=== PATIENT | male | born 1945 | race Caucasian/White ===

== ENCOUNTER 2017-02-27 12:57 | Emergency (ER) | payer OTHER, MEDICARE ==
[~2017-02-27] VITALS: Ht 182.9 cm; Wt 78.3 kg
[2017-02-27 13:02] VITALS: TEMP 36.3; Ht 182.9 cm; Wt 78.3 kg
[2017-02-27] MEDS ORDERED: METOPROLOL TARTRATE 1 MG/ML VIAL IV STA (13:45)
[2017-02-27] MEDS ORDERED: METOPROLOL SUCC 50MG EXT REL TAB PO STA (13:45)
[2017-02-27 13:52] LABS: BASO % 0.9 %; BASO ABS # 0.07 K/uL (0-0.2); EOS % 2.3 %; EOS ABS # 0.18 K/uL (0-0.5); HEMATOCRIT 47.8 % (42-52); HEMOGLOBIN 16.4 g/dL (14.0-18.0); IG# 0.02 K/uL (0.00-0.02); LYMPH % 31.3 %; LYMPH ABS # 2.45 K/uL (1.2-3.4); MEAN CELL VOLUME 92.6 fL (80-100); MEAN CORPUSCULAR HEMOGLOBIN 31.8 pg (25-34); MEAN CORPUSCULAR HGB CONC 34.3 g/dl (32-36); MEAN PLATELET VOLUME 10.9 fL (7.4-10.4); MONO % 6.8 %; MONO ABS # 0.53 K/uL (0.11-0.59); NEUT % 58.4 %; NEUT ABS # 4.57 K/uL (1.4-6.5); PLATELET COUNT 239 K/uL (130-400); RED CELL DISTRIBUTION WIDTH CV 12.3 % (11.5-14.5); RED CELL DISTRIBUTION WIDTH SD 41.4 fL (36.4-46.3); WHITE BLOOD COUNT 7.82 K/uL (4.8-10.8)
--- NOTE | 2017-02-27 13:56 | EMERGENCY ROOM VISIT NOTE ---
History First contact with patient: 13:17 (Shon Chamberlain MD) First contact with patient: 13:30 (Fabrice Long M.D.) Chief Complaint: RAPID HEART RATE Stated Complaint: RAPID AND IRREGULAR HEART BEAT Nursing Triage Summary: Relates that he has a history of atrial fib. He relates that this onset began at approximately 0900 while he was driving from [place]. He relates that he takes Lopressor 25mg po daily. Today he took another Lopressor 25mg po as per his chair car attendant. He relates that he did feel some change. (Shon Chamberlain MD) History of Present Illness The patient is a 71 year old male who presents to the Emergency Room with complaints of chest palpitations His palpitations started this morning at 9am. He started to feel that his heart was beating irregularly fast. He had associated shortness of breath with exertion. He also has mild central chest burning. He did take 25mg of fast acting metoprolol this morning on top of his long acting metoprolol and this has not helped. He denies any pain in his neck, back or down his left arm. Denies any cough or swelling in his legs. He denies any pre-syncope, syncope or dizziness. He takes 10mg of eliquis daily and follows with a chair car attendant in [place] (Shon Chamberlain MD) Review of Systems CONSTITUTIONAL: No fever, chills, sweats or night sweats. No recent infections. No weight loss or weight gain. NEUROLOGIC: No headaches, dizziness or syncopal episodes. HEENT: No hearing or visual changes. No sinus or nasal issues. No mouth sores, thrush or oral lesions. CARDIOVASCULAR: mild chest discomfort and palpitations RESPIRATORY: No SOB, dyspnea, cough or hemoptysis. GASTROINTESTINAL: No nausea, vomiting, diarrhea, constipation, reflux, melena or hematochezia. MUSCULOSKELETAL: no back pain or arm pain SKIN: No rashes or skin lesions. No hair loss or nail changes. 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 Afib 1 Stent placed Left hernia Cataract Tonsillectomy Adenoidectomy (Shon Chamberlain MD) Social History Smoking Status: Former Smoker (4 pack year smoking history) Alcohol Use: occasionally Drug Use: none Marital Status: Housing Status: lives with significant other Occupation Status: employed (Shon Chamberlain MD) Current/Historical Medications Scheduled Apixaban (Eliquis), 5 MG PO BID Aspirin (Aspirin Ec), 81 MG PO DAILY Famotidine (Pepcid), 20 MG PO DAILY Metoprolol Succ (Toprol Xl) (Toprol-Xl), 25 MG PO DAILY Simvastatin (Zocor), 20 MG PO QPM Scheduled PRN Metoprolol Tartrate (Lopressor) (Lopressor), 25 MG PO UD PRN for TACHYCARDIA Allergies NKDA (Shon Chamberlain MD) Physical Exam Vital Signs Date Time Temp Pulse Resp B/P (MAP) Pulse Ox O2 Delivery O2 Flow Rate FiO2 02/27/17 16:00 96 120/94 95 02/27/17 14:00 110 110/85 02/27/17 13:58 110 20 110/85 97 02/27/17 13:55 120 14 87/81 97 Room Air 02/27/17 13:33 105 02/27/17 13:29 Room Air 02/27/17 13:25 118 21 133/98 99 02/27/17 13:07 96 Room Air 02/27/17 13:02 36.3 104 20 129/77 97 Room Air (Fabrice Long M.D.) Physical Exam Neck: Supple; no JVD, nuchal rigidity, or auscultated bruits. Heart: Irregular rate and rhythm. There is a normal S1 and S2 with no murmurs, clicks, or gallops appreciated. Lungs: Clear to auscultation bilaterally with no wheezes, rales, or rhonchi. Abdomen: Soft, completely nontender, nondistended, with good bowel sounds. There are no palpable pulsatile masses or hepatosplenomegaly. There is no guarding, rigidity, or rebound noted. Extremities: No evidence of cyanosis, clubbing, or edema. There are easily palpable peripheral pulses. No peripheral edema (Shon Chamberlain MD) Medical Decision & Procedures Laboratory Results 02/27/17 13:20 Red Blood Count 5.16, Mean Corpuscular Volume 92.6, Mean Corpuscular Hemoglobin 31.8, Mean Corpuscular Hemoglobin Concent 34.3, Mean Platelet Volume 10.9, Neutrophils (%) (Auto) 58.4, Lymphocytes (%) (Auto) 31.3, Monocytes (%) (Auto) 6.8, Eosinophils (%) (Auto) 2.3, Basophils (%) (Auto) 0.9, Neutrophils # (Auto) 4.57, Lymphocytes # (Auto) 2.45, Monocytes # (Auto) 0.53, Eosinophils # (Auto) 0.18, Basophils # (Auto) 0.07 02/27/17 13:20 Test 02/27/17 13:20 White Blood Count 7.82 K/uL (4.8-10.8) Red Blood Count 5.16 M/uL (4.7-6.1) Hemoglobin 16.4 g/dL (14.0-18.0) Hematocrit 47.8 % (42-52) Mean Corpuscular Volume 92.6 fL (80-100) Mean Corpuscular Hemoglobin 31.8 pg (25-34) Mean Corpuscular Hemoglobin Concent 34.3 g/dl (32-36) Platelet Count 239 K/uL (130-400) Mean Platelet Volume 10.9 fL (7.4-10.4) Neutrophils (%) (Auto) 58.4 % Lymphocytes (%) (Auto) 31.3 % Monocytes (%) (Auto) 6.8 % Eosinophils (%) (Auto) 2.3 % Basophils (%) (Auto) 0.9 % Neutrophils # (Auto) 4.57 K/uL (1.4-6.5) Lymphocytes # (Auto) 2.45 K/uL (1.2-3.4) Monocytes # (Auto) 0.53 K/uL (0.11-0.59) Eosinophils # (Auto) 0.18 K/uL (0-0.5) Basophils # (Auto) 0.07 K/uL (0-0.2) RDW Standard Deviation 41.4 fL (36.4-46.3) RDW Coefficient of Variation 12.3 % (11.5-14.5) Immature Granulocyte % (Auto) 0.3 % Immature Granulocyte # (Auto) 0.02 K/uL (0.00-0.02) Prothrombin Time 11.4 SECONDS (9.0-12.0) Prothromb Time International Ratio 1.1 (0.9-1.1) Activated Partial Thromboplast Time 29.4 SECONDS (21.0-31.0) Partial Thromboplastin Ratio 1.1 Anion Gap 5.0 mmol/L (3-11) Est Creatinine Clear Calc Drug Dose 67.7 ml/min Estimated GFR () 76.4 Estimated GFR (Non- 66.0 BUN/Creatinine Ratio 17.4 (10-20) Calcium Level 9.1 mg/dl (8.5-10.1) Phosphorus Level 3.3 mg/dl (2.5-4.9) Magnesium Level 2.3 mg/dl (1.8-2.4) Total Bilirubin 1.9 mg/dl (0.2-1) Direct Bilirubin 0.3 mg/dl (0-0.2) Aspartate Amino Transf (AST/SGOT) 19 U/L (15-37) Alanine Aminotransferase (ALT/SGPT) 22 U/L (12-78) Alkaline Phosphatase 65 U/L (45-117) Troponin I < 0.015 ng/ml (0-0.045) Total Protein 7.9 gm/dl (6.4-8.2) Albumin 4.3 gm/dl (3.4-5.0) Thyroid Stimulating Hormone (TSH) 4.830 uIu/ml (0.300-4.500) (Fabrice Long M.D.) Medications Administered Medications (Trade) Dose Ordered Sig/Jamia Route Start Time Stop Time Status Last Admin Dose Admin Metoprolol Succinate (Toprol Xl Tab) 25 mg NOW STAT PO 02/27/17 13:45 02/27/17 13:46 DC 02/27/17 13:59 25 MG Metoprolol Tartrate (Lopressor Iv) 5 mg NOW STAT IV 02/27/17 13:45 02/27/17 13:46 DC 02/27/17 14:00 5 MG (Fabrice Long M.D.) ECG Indication: SOB/dyspnea, tachycardia Rate (beats per minute): 106 Rhythm: atrial fibrillation Findings: other (normal QRS and QTc, LAD, ? incomplete RBBB pattern, no STS changes or TWI) Comparison ECG Date: no prior available (Fabrice Long M.D.) ED Course 1300 - patient was seen in B2 and a full history and examination was performed by myself 1320 - I discussed the case with Dr. Long and we ordered labs, a CXR and we administered 5mg of metoprolol IV and 25mg of metoprolol PO 1420- patient was reassessed by myself and his heart rate had came down and he was starting to feel better 1510 - the patient was able to ambulate with the nurse without any shortness of breath 1542 - Dr. Long spoke to Dr. Kc. Dr. Kc suggested that the patient increase his home dose of metoprolol to 50mg daily and for the patient to follow up with his PCP 1552 - Dr. Kc's recommendations were discussed with the patient who was in agreement with the plan. 155 - Patient was discharged home (Shon Chamberlain MD) Medical Decision Patient is a 71 year old male with a PMH of CAD, atrial fibrillation and 1 stent placed. He came in with mild shortness of breath with exertion and heart palpitations. He had lab work drawn which showed normal electrolytes, negative troponin but did show a TSH of 4.89. His EKG showed sinus tachycardia but was of poor quality due to the elevated rate. The patient was given 5mg of metoprolol IV and 25mg metoprolol PO. His heart rate improved with this as did his shortness of breath. A repeat EKG showed atrial fibrillation with a heart rate of 106. The patient walked with the nurse and denied any shortness of breath. The chair car attendant was spoken to and it was agreed upon with the patient to increase his dose of metoprolol to 50mg daily and to follow up with his chair car attendant on Wednesday. He will also be following up with his PCP next week to review his elevated TSH (Shon Chamberlain MD) Impression Primary Impression: Atrial fibrillation Additional Impressions: Dyspnea Palpitations Departure Information Dispostion Home / Self-Care Condition GOOD Referrals No Doctor, Assigned (PCP) Patient Instructions My [facility] Additional Instructions While in the hospital we gave you IV metoprolol to help slow down your heart rate because it was very fast and you were in atrial fibrillation. Your Thyroid Stimulating hormone was 4.83 and all your other labs were normal. You had a CXR which was normal. Please increase the dose of your daily metoprolol to 50mg daily and please follow up with your Community Ambassador on Wednesday and follow up with your PCP in the next 4-5 days. If you have any worsening palpitations, shortness of breath or chest pain then please come back to the emergency department. Problem Qualifiers Primary Impression: Atrial fibrillation Atrial fibrillation type: unspecified Qualified Codes: I48.91 - Unspecified atrial fibrillation Additional Impressions: Dyspnea Dyspnea type: unspecified Qualified Codes: R06.00 - Dyspnea, unspecified
[2017-02-27 14:02] LABS: ALBUMIN 4.3 gm/dl (3.4-5.0); ALT/SGPT 22 U/L (12-78); BLOOD UREA NITROGEN 20 mg/dl (7-18); CALCIUM 9.1 mg/dl (8.5-10.1); CARBON DIOXIDE 29 mmol/L (21-32); CREATININE 1.13 mg/dl (0.60-1.40); GLUCOSE 109 mg/dl (70-99); POTASSIUM 4.1 mmol/L (3.5-5.1); SODIUM 140 mmol/L (136-145)
[2017-02-27 14:09] LABS: INR 1.1 (0.9-1.1); PTT PATIENT 29.4 SECONDS (21.0-31.0)
--- NOTE | 2017-02-27 14:09 | EMERGENCY ROOM VISIT NOTE ---
ED Visit Note First contact with patient: 13:30 The patient was seen and examined with Dr. Chamberlain. I agree with the history, physical and findings. Please see the note for disposition and details. Patient was seen and evaluated the bedside after the resident physician. Patient did complain of some palpitations and symptoms that began this morning. Patient states that he did take an extra dose of his Toprol. He states he felt mildly improved. Upon presentation the patient still had heart rate in the 120s. Patient was given IV as well as by mouth metoprolol. Patient's rate improved. Patient is oriented coagulated on Elequis. This is a chronic issue. Patient does not see a physician in the area as he is visiting his son. Patient states he did have some exertional dyspnea. Patient did have blood work that was completed along with an EKG, troponin. Patient's initial EKG did show questionable sinus tach with sinus arrhythmia versus A. fib. Repeat EKG showed improvement in his tachycardia with likely A. fib. Patient did have an ambulatory trial and he no longer had any exertional dyspnea. I believe that his exertional dyspnea was likely rate related. Patient's EKG does not show any concerning signs for ischemia at this time. Patient has a negative troponin. Patient chest x-ray clear. Cardiology was consulted, and they did agree that the patient could double up on his dose and take 50 of Toprol daily. Patient was told to take his pulse prior to taking his medications. Patient also did have a mildly elevated TSH and he was told to follow-up on this. Patient was also told to follow-up with his ecosystem ecology professor on Wednesday. Patient was amenable to this plan of care. Patient was deemed suitable for outpatient follow-up and treatment.
[2017-02-27 14:13] LABS: ALKALINE PHOSPHATASE 65 U/L (45-117); AST/SGOT 19 U/L (15-37); PHOSPHORUS 3.3 mg/dl (2.5-4.9); TOTAL PROTEIN 7.9 gm/dl (6.4-8.2)
[2017-02-27] MEDS ORDERED: METO25TA3 PO (14:42)
[2017-02-27] MEDS ORDERED: METO25TA56 PO (14:42)
[2017-02-27] MEDS ORDERED: ASPI81TA28 PO (14:42)
[2017-02-27] MEDS ORDERED: APIX1TAB3 PO (14:42)
[2017-02-27] MEDS ORDERED: SIMV20TA2 PO (14:42)
[2017-02-27] MEDS ORDERED: FAMO20TA9 PO (14:42)
--- NOTE | 2017-02-27 14:54 | DIAGNOSTIC IMAGING REPORT ---
CHEST 2 VIEWS ROUTINE CLINICAL HISTORY: palpitations COMPARISON STUDY: No previous studies for comparison. FINDINGS: The cardiac and mediastinal contours are normal. There is no evidence of focal pulmonary consolidation. There is no evidence of failure. No pleural effusions are visualized.[ There are minor basilar atelectatic changes present. IMPRESSION: No active disease in the chest. Electronically signed by: Sandip Akins M.D. 02/27/2017 2:53 PM Dictated Date/Time: 02/27/2017 2:52 PM
[2017-02-27 16:00] VITALS: BP 120/94; PULSE 96; O2SAT 95
== END 2017-02-27 16:01 | disposition home or self-care (01) ==
LOC: C.EDB 13:00
DX: I48.91 Unspecified atrial fibrillation (principal); R00.2 Palpitations; R06.00 Dyspnea, unspecified; I25.10 Atherosclerotic heart disease of native coronary artery without angina pectoris; K21.9 Gastro-esophageal reflux disease without esophagitis; E80.4 Gilbert syndrome; K57.90 Diverticulosis of intestine, part unspecified, without perforation or abscess without bleeding; N05.9 Unspecified nephritic syndrome with unspecified morphologic changes; Z79.82 Long term (current) use of aspirin; Z79.899 Other long term (current) drug therapy; Z98.61 Coronary angioplasty status; Z98.49 Cataract extraction status, unspecified eye; Z98.890 Other specified postprocedural states; Z87.891 Personal history of nicotine dependence